=== PATIENT | female | born 1980 | race Caucasian/White ===

== ENCOUNTER 2016-12-05 15:10 | Emergency (ER) | payer SELFPAY ==
[~2016-12-05] VITALS: Ht 177.8 cm; Wt 81.2 kg
[~2016-12-05 15:10] MED LIST: CELEXA40 M1 PO; CIPRO 500MG TA500 MG PO; PYRIDIUM100 M2 PO; TRAZODONE 50MG50 MG PO
[2016-12-05 15:50] LABS: HEMOGLOBIN 12.8 g/dL (12.2-16.2); LYMPH # 2.5 K/mm3 (0.7-4.5); LYMPH % 20.3 % (10-50.0)
--- OUTSIDE RECORDS SUMMARY | 2016-12-05 15:55 | External Medical Summary Rpt | CCD ---
Author Author MARGARITA Address Unknown Phone [email or web address] Purpose Continuity of Care Document - through 2016
--- OUTSIDE RECORDS SUMMARY | 2016-12-05 15:55 | External Medical Summary Rpt | CCD ---
Demographics Preferred Language Norwegian Marital Status Unknown Jain Affiliation Unknown Race Unknown Ethnic Group Unknown Author Author , MARGARITA TAPIA Address Unknown Phone Immunization No patient found.
--- OUTSIDE RECORDS SUMMARY | 2016-12-05 15:55 | External Medical Summary Rpt | CCD ---
Demographics Preferred Language Cape Verdean Marital Status Unknown Uatsdin Affiliation Unknown Race Unknown Ethnic Group Unknown Author Author , MARGARITA TAPIA Address Unknown Phone Immunization No patient found.
--- OUTSIDE RECORDS SUMMARY | 2016-12-05 15:55 | External Medical Summary Rpt ---
Author Author WILLIE Parson, [employer] Organization [employer] Address Unknown Phone Unavailable
--- OUTSIDE RECORDS SUMMARY | 2016-12-05 15:55 | External Medical Summary Rpt | CCD ---
Author Author MARGARITA Address Unknown Phone Purpose Continuity of Care Document - through 2016
--- OUTSIDE RECORDS SUMMARY | 2016-12-05 15:55 | External Medical Summary Rpt | CCD ---
Author Author MARGARITA Address Unknown Phone [email or web address] Purpose Continuity of Care Document - through 2016
--- OUTSIDE RECORDS SUMMARY | 2016-12-05 15:55 | External Medical Summary Rpt | CCD ---
Author Author MARGARITA Address Unknown Phone [email or web address] Purpose Continuity of Care Document - through 2016
--- NOTE | 2016-12-05 16:37 | Emergency Room Report ---
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 N Clinical Suspician of Infection? N Mental Status: 1 - Regular (Normal Baseline) Sepsis Risk:Low Sepsis Risk Have you (or family members/close friends) recently traveled outside the [facility]? N If Yes, where/when: Have you had exposure to infectious disease within the past month? N TB? Other? Specify: Comment The patient states that she has severe pain in her LEFT lower quadrant and LEFT flank with nausea that started at 11 AM. No fever. No diarrhea or constipation. No urinary symptoms. She says that she has a history of kidney stones, but never this severe. She also has a history of ovarian cysts. She says she had similar symptoms 5 weeks ago while in [facility], and had a workup in the emergency room there that showed an elevated white blood cell count and blood in her urine, but a negative CT scan. That pain lasted 3 days. She followed up with an PIN MACHINE OPERATOR and had a Pap smear which was normal. ALLERGIES Coded Allergies: codeine (Intermediate, I-ITCHING 03/14/16) latex (03/14/16) History Medical History General CAD? No Angina: No [place]: No Hypertension? No Hyperlipidemia? No CHF? No DVT? No PE? No COPD? No Asthma? No Anemia? No GERD? No Gastric ulcers? No GI Bleed? No Hernia? No Thyroid Problems? No Hypothyroidism? No CVA? No Seizures? No Diabetes? No Renal Insuffiency? No End Stage Renal Disease? No UTI? No Stones? No BPH? No GB Disease: Yes Nephritic Syndrome? No Asplenia? No Hepatitis? No Sickle Cell Disease? No Arthritis? No Migraines? No Cataracts? No Glaucoma? No MRSA? No HIV? No TB? No Anxiety? Yes Depression? Yes Cancer? No More? 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 Musculoskeletal back pain Physical Exam Vital Signs Vital Signs Date Time Temp Pulse Resp B/P Pulse O2 O2 Flow FiO2 Ox Delivery Rate 12/05 1812 98.6 62 16 129/81 96 12/05 1741 62 16 129/81 96 12/05 1736 18 12/05 1517 98.6 81 18 138/89 98 General Appearance no apparent distress Eye Exam - bilateral eye normal exam, bilateral eye PERRL, bilateral eye EOMI Ear, Nose, Throat hearing grossly normal, normal ENT inspection Neck normal inspection, non-tender, supple, full range of motion Respiratory Status Yes: trachea midline, chest symmetrical, non tender chest. No: respiratory distress. Lung Sounds bilateral: normal breath sounds, lungs clear. Cardiovascular normal exam, regular rate/rhythm, no peripheral edema, no gallop, no JVD, no murmur, no rub, normal peripheral pulses Peripheral Pulses Pulses normal Yes Gastrointestinal normal bowel sounds, normal exam, non tender, soft, no organomegaly Back normal inspection, no CVA tenderness, no vertebral tenderness Extremities non-tender, normal range of motion, normal inspection Neurologic alert, profile grinder II-XII nml as tested, normal exam, oriented x 3 Mental status normal mood/affect Skin intact, normal color, warm/dry Medical Decision Making LABS/Meds/Orders Pt receiving controlled substance in ED? No Results/Orders Laboratory Tests 12/05/16 1645: Urine Color YELLOW, Urine Appearance SL CLOUDY, Urine pH 6.0, Ur Specific [place] >= 1.030, Urine Protein NEGATIVE, Urine Ketones TRACE H, Urine Blood TRACE-INTACT, Urine Nitrate NEGATIVE, Urine Bilirubin NEGATIVE, Urine Urobilinogen 0.2, Ur Leukocyte Esterase NEGATIVE, Ur Squamous Epith Cells 10-20, Urine Bacteria 4+, Urine Mucus 2+, Urine Glucose NEGATIVE 12/05/16 1520: Sodium 139, Potassium 3.7, Chloride 104, Carbon Dioxide 26, BUN 12, Creatinine 0.6, Estimated Creat Clear 163, Estimated GFR (MDRD) 112, Glucose 99, Calcium 8.9, Total Bilirubin 0.2, AST 14 L, ALT 13, Alkaline Phosphatase 75, Total Protein 7.1, Albumin 4.0, Globulin 3.1, Albumin/Globulin Ratio 1.3, Amylase 46, Lipase 72 L, WBC 12.3 H, RBC 4.04 L, Hgb 12.8, Hct 37.9, MCV 94.0, RDW 12.6, Plt Count 269, MPV 7.6, Gran % 75.4, Gran # 9.3 H, Lymphocytes % 20.3, Monocytes % 3.5, Eosinophils % 0.4, Basophils % 0.4, Lymphocytes # 2.5, Monocytes # 0.4, Eosinophils # 0.1, Basophils # 0.0, PUBS MCHC 33.7, MCH 31.6 H Current Medication Orders Sig/Constantino Start time Last Medication Dose Route Stop Time Status Admin Ketorolac 0 .STK-MED ONE 12/06 1735 DC Tromethamine .ROUTE Ondansetron HCl 0 .STK-MED ONE 12/05 173 DC .ROUTE Ketorolac 30 MG ONCE ONE 12/05 171 DC 12/05 Tromethamine IV 12/05 171 1736 Ondansetron HCl 4 MG ONCE ONE 12/05 1715 DC 12/05 IV 12/05 171 1735 Sodium Chloride 10 ML PRN PRN 12/05 1545 DCD IV 12/06 1540 Orders Procedure Date/time Status DIET-NOTHING BY MOUTH 12/[address] ABD/PELVIS REQ 12/05 1703 Active CULTURE, URINE 12/05 1645 Active IV SALINE LOCK 12/05 1541 Active URINALYSIS/COMPLETE 12/05 1541 Complete URINE 12/05 1541 Complete LIPASE 12/05 1541 Complete COMPLETE METABOLIC PANEL 12/05 1541 Complete CBC WITH AUTO DIFF 12/05 1541 Complete AMYLASE 12/05 1541 Complete XRAY/CT/US XRAY/CT/US CT abdomen, pelvis Comment CT scan interpreted by radiologist: No acute finding abdomen or pelvis Departure Departure Disposition DC Home or Self Care(routine) Clinical Impression Primary Impression: Left flank pain Secondary Impressions: Abdominal pain, left lower quadrant Condition STABLE Additional Instructions Off work until Wednesday12/07/16. You are being provided with a list of physicians available for follow-up of your condition. Please call a physician on this list to arrange a follow-up appointment as soon as possible. Additional instructions for ABDOMINAL PAIN: See your physician as soon as possible for further evaluation. Return immediately if worsening abdominal pain, vomiting, shortness of breath, fever, vomiting of blood or abdominal distention. Additional instructions for BACK PAIN: See your physician as soon as possible for further evaluation. Return immediately if back pain becomes intolerable, or if fever, numbness or weakness of your legs, loss of control of your bowels or bladder. Prescriptions Current Visit Scripts Naproxen (Naprosyn 500MG Tab) 500 MG PO BID #14 TAB Ondansetron (Zofran 4MG Odt) 4 MG PO Q8HP PRN NAUSEA AND VOMITING #10 ODT ED Critical Care Critical Care No at 2060
--- NOTE | 2016-12-05 16:37 | Emergency Room Report ---
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 N Clinical Suspician of Infection? N Mental Status: 1 - Regular (Normal Baseline) Sepsis Risk:Low Sepsis Risk Have you (or family members/close friends) recently traveled outside the [facility]? N If Yes, where/when: Have you had exposure to infectious disease within the past month? N TB? Other? Specify: Comment The patient states that she has severe pain in her LEFT lower quadrant and LEFT flank with nausea that started at 11 AM. No fever. No diarrhea or constipation. No urinary symptoms. She says that she has a history of kidney stones, but never this severe. She also has a history of ovarian cysts. She says she had similar symptoms 5 weeks ago while in [facility], and had a workup in the emergency room there that showed an elevated white blood cell count and blood in her urine, but a negative CT scan. That pain lasted 3 days. She followed up with an LEGAL RESEARCH ANALYST and had a Pap smear which was normal. ALLERGIES Coded Allergies: codeine (Intermediate, I-ITCHING 03/14/16) latex (03/14/16) History Medical History General CAD? No Angina: No [place]: No Hypertension? No Hyperlipidemia? No CHF? No DVT? No PE? No COPD? No Asthma? No Anemia? No GERD? No Gastric ulcers? No GI Bleed? No Hernia? No Thyroid Problems? No Hypothyroidism? No CVA? No Seizures? No Diabetes? No Renal Insuffiency? No End Stage Renal Disease? No UTI? No Stones? No BPH? No GB Disease: Yes Nephritic Syndrome? No Asplenia? No Hepatitis? No Sickle Cell Disease? No Arthritis? No Migraines? No Cataracts? No Glaucoma? No MRSA? No HIV? No TB? No Anxiety? Yes Depression? Yes Cancer? No More? 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 Musculoskeletal back pain Physical Exam Vital Signs Vital Signs Date Time Temp Pulse Resp B/P Pulse O2 O2 Flow FiO2 Ox Delivery Rate 12/05 1812 98.6 62 16 129/81 96 12/05 1741 62 16 129/81 96 12/05 1736 18 12/05 1517 98.6 81 18 138/89 98 General Appearance no apparent distress Eye Exam - bilateral eye normal exam, bilateral eye PERRL, bilateral eye EOMI Ear, Nose, Throat hearing grossly normal, normal ENT inspection Neck normal inspection, non-tender, supple, full range of motion Respiratory Status Yes: trachea midline, chest symmetrical, non tender chest. No: respiratory distress. Lung Sounds bilateral: normal breath sounds, lungs clear. Cardiovascular normal exam, regular rate/rhythm, no peripheral edema, no gallop, no JVD, no murmur, no rub, normal peripheral pulses Peripheral Pulses Pulses normal Yes Gastrointestinal normal bowel sounds, normal exam, non tender, soft, no organomegaly Back normal inspection, no CVA tenderness, no vertebral tenderness Extremities non-tender, normal range of motion, normal inspection Neurologic alert, rd scientist II-XII nml as tested, normal exam, oriented x 3 Mental status normal mood/affect Skin intact, normal color, warm/dry Medical Decision Making LABS/Meds/Orders Pt receiving controlled substance in ED? No Results/Orders Laboratory Tests 12/05/16 1645: Urine Color YELLOW, Urine Appearance SL CLOUDY, Urine pH 6.0, Ur Specific [place] >= 1.030, Urine Protein NEGATIVE, Urine Ketones TRACE H, Urine Blood TRACE-INTACT, Urine Nitrate NEGATIVE, Urine Bilirubin NEGATIVE, Urine Urobilinogen 0.2, Ur Leukocyte Esterase NEGATIVE, Ur Squamous Epith Cells 10-20, Urine Bacteria 4+, Urine Mucus 2+, Urine Glucose NEGATIVE 12/05/16 1520: Sodium 139, Potassium 3.7, Chloride 104, Carbon Dioxide 26, BUN 12, Creatinine 0.6, Estimated Creat Clear 163, Estimated GFR (MDRD) 112, Glucose 99, Calcium 8.9, Total Bilirubin 0.2, AST 14 L, ALT 13, Alkaline Phosphatase 75, Total Protein 7.1, Albumin 4.0, Globulin 3.1, Albumin/Globulin Ratio 1.3, Amylase 46, Lipase 72 L, WBC 12.3 H, RBC 4.04 L, Hgb 12.8, Hct 37.9, MCV 94.0, RDW 12.6, Plt Count 269, MPV 7.6, Gran % 75.4, Gran # 9.3 H, Lymphocytes % 20.3, Monocytes % 3.5, Eosinophils % 0.4, Basophils % 0.4, Lymphocytes # 2.5, Monocytes # 0.4, Eosinophils # 0.1, Basophils # 0.0, PUBS MCHC 33.7, MCH 31.6 H Current Medication Orders Sig/Constantino Start time Last Medication Dose Route Stop Time Status Admin Ketorolac 0 .STK-MED ONE 12/06 1735 DC Tromethamine .ROUTE Ondansetron HCl 0 .STK-MED ONE 12/05 173 DC .ROUTE Ketorolac 30 MG ONCE ONE 12/05 171 DC 12/05 Tromethamine IV 12/05 171 1736 Ondansetron HCl 4 MG ONCE ONE 12/05 1715 DC 12/05 IV 12/05 171 1735 Sodium Chloride 10 ML PRN PRN 12/05 1545 DCD IV 12/06 1540 Orders Procedure Date/time Status DIET-NOTHING BY MOUTH 12/[address] ABD/PELVIS REQ 12/05 1703 Active CULTURE, URINE 12/05 1645 Active IV SALINE LOCK 12/05 1541 Active URINALYSIS/COMPLETE 12/05 1541 Complete URINE 12/05 1541 Complete LIPASE 12/05 1541 Complete COMPLETE METABOLIC PANEL 12/05 1541 Complete CBC WITH AUTO DIFF 12/05 1541 Complete AMYLASE 12/05 1541 Complete XRAY/CT/US XRAY/CT/US CT abdomen, pelvis Comment CT scan interpreted by radiologist: No acute finding abdomen or pelvis Departure Departure Disposition DC Home or Self Care(routine) Clinical Impression Primary Impression: Left flank pain Secondary Impressions: Abdominal pain, left lower quadrant Condition STABLE Additional Instructions Off work until Wednesday12/07/16. You are being provided with a list of physicians available for follow-up of your condition. Please call a physician on this list to arrange a follow-up appointment as soon as possible. Additional instructions for ABDOMINAL PAIN: See your physician as soon as possible for further evaluation. Return immediately if worsening abdominal pain, vomiting, shortness of breath, fever, vomiting of blood or abdominal distention. Additional instructions for BACK PAIN: See your physician as soon as possible for further evaluation. Return immediately if back pain becomes intolerable, or if fever, numbness or weakness of your legs, loss of control of your bowels or bladder. Prescriptions Current Visit Scripts Naproxen (Naprosyn 500MG Tab) 500 MG PO BID #14 TAB Ondansetron (Zofran 4MG Odt) 4 MG PO Q8HP PRN NAUSEA AND VOMITING #10 ODT ED Critical Care Critical Care No at 1528
[2016-12-05 16:50] LABS: URINE BILIRUBIN - DIPSTICK NEGATIVE (NEG); URINE BLOOD TRACE-INTACT (NEG)
--- NOTE | 2016-12-05 18:00 | RADIOLOGY REPORT PS360 ---
CT ABD PELVIS W/O CONTRAST HISTORY: L FLANK PAIN, LLQ PAIN Patient Age: 36 years: Female Ordering Physician: Simon Valencia MD TECHNIQUE: Helical CT scanning through abdomen pelvis with no oral nor IV contrast. Sagittal coronal reconstructions on CT workstation COMPARISON :Previous CT abdomen and pelvis with contrast from 03/14/2016 as comparison also October 25, 2015 CT abdomen without contrast FINDINGS Lung bases. No active disease Abdomen pelvis. Lack of oral and IV contrast decreases sensitivity LIVER. No significant change. Again generous size liver with right lobe measuring up to 22 cm length. PANCREAS: unremarkable and stable on this noncontrast study. GALLBLADDE. Surgical Removed no biliary ductal dilatation. KIDNEYS. No urinary tract calculi nor obstruction... Ureters normal in course and caliber with no calculi .. R IGHT kidney. There is a 9 mm intermediate density cyst seen on the February CT.. On today's noncontrast study of blends with adjacent parenchyma but does not appear to have enlarged appears similar to October 2015 supported is more likely benign or indolent character LEFT kidney unremarkable. No hydronephrosis nor obstruction. The left ureter is slightly more generous today than it was on previous study but this may merely reflect hydration state. Urinary tract infections excluded. PELVIS: anteverted uterus with slightly more generous low-density endometrium on today's study most evident towards the superior aspect of uterus, with question of small small focal area of higher soft tissue density seen towards the inferior aspect endometrial cavity.. (Sagittal image 61.).. Does patient have normal regular menses? If heavy or irregular menses consider pelvic ultrasound to exclude submucosal fibroid. orendometrial polyp.. This appearance conceivably reflect scarring changes from previous endometrial ablation.. Note Negative test as well. No adnexal masses. No significant free fluid in the pelvis or abdomen. GI TRACT. No significant findings. The appendix is visualized and normal terminal ileum unremarkable. . No bowel dilatation or obstruction. There is upper normal wall thickness at the left colon and sigmoid colon most likely reflect lack of distention. There is minimal stool seen today throughout the left colon. Moderate stool right colon. . No pelvic nor mesenteric nor retroperitoneal adenopathy of significance. Scattered small nodes left para-aortic region appear stable. Inguinal nodes of moderate size appears stable. Soft tissues & abdominal wall unremarkable. Osseous structures. No significant findings. Mild degenerative disc changes L5/S1 IMPRESSION: 1. No acute findings at abdomen or pelvis 2. Regards to left flank pain no urinary tract calculi nor obstruction. Left kidney unremarkable. 3. Would only note that the Left ureter is very slightly more generous today but within still normal limits. This may reflect hydration state or could reflect UTI. 4. Slightly more generous endometrial stripe superior uterus.. Doubt current significance note comments in text. 5. The Small 9X 10 mm intermediate density cyst previously seen at the right kidney shows cannot be seen today on this noncontrast study as it is same density as the kidney on this noncontrast study.-However shows no interval enlargement.. & Most likely benign renal cyst
[2016-12-05] MEDS ORDERED: ZOFRAN ODT4 MG PO (18:09)
[2016-12-05] MEDS ORDERED: NAPROSYN500 M1 PO (18:09)
[2016-12-05 18:12] VITALS: BP 129/81
== END 2016-12-05 18:16 | disposition home or self-care (01) ==
LOC: ER 15:10
PROVIDERS: Emergency Medicine
DX: R10.32 Left lower quadrant pain (principal); F17.210 Nicotine dependence, cigarettes, uncomplicated
CPT/HCPCS: J2405

== ENCOUNTER 2017-01-09 14:48 | Emergency (ER) | payer SELFPAY ==
[~2017-01-09] VITALS: Ht 177.8 cm; Wt 82.1 kg
[~2017-01-09 14:48] MED LIST changes: +NAPROSYN500 M1 PO; +ZOFRAN ODT4 MG PO
--- OUTSIDE RECORDS SUMMARY | 2017-01-09 14:52 | External Medical Summary Rpt | CCD ---
Author Author [employer] Organization [employer] Address Unknown Phone Unavailable Purpose Continuity of Care Document - through 2016
--- OUTSIDE RECORDS SUMMARY | 2017-01-09 14:52 | External Medical Summary Rpt | CCD ---
Demographics Preferred Language Brazilian Marital Status Unknown Sikhism Affiliation Unknown Race Unknown Ethnic Group Unknown Author Author , MARGARITA TAPIA Address Unknown Phone Immunization No patient found.
--- OUTSIDE RECORDS SUMMARY | 2017-01-09 14:52 | External Medical Summary Rpt | CCD ---
Author Author , WILLIE Organization WILLIE Address Unknown Phone [email or web address] Purpose Continuity of Care Document - 12-05-2016 through 2016 Problems Code Diagnosis DOS Provider Status N39.0 URINARY TRACT INFECTION, SITE NOT SPECIFIED R10.32 LEFT LOWER QUADRANT PAIN R10.9 UNSPECIFIED ABDOMINAL PAIN S00.93XA CONTUSION OF UNSPECIFIED PART OF HEAD, INITIAL ENCOUNTER S06.0X9A CONCUSSION W LOSS OF CONSCIOUSNE SS OF UNSP DURATION, INIT S09.93XA UNSPECIFIED INJURY OF FACE, INITIAL ENCOUNTER S16.1XXA STRAIN OF MUSCLE, FASCIA AND TENDON AT NECK LEVEL, INIT S39.81XA OTHER SPECIFIED INJURIES OF ABDOMEN, INITIAL ENCOUNTER Results Labs Lab Lab Date Result Refere Interp Status Commen Order Detail nces retati t Range on Urinalysis with microscopy (12-05-2016 16:45) Urine 0.2 0.2 NEG complet urobili 017 L ed nogen 16:45 E.U./dL detecti on by test str [place] 10-20 0-5 complet s 017 10-20 L ed epithel 16:45 #/hpf ial cells detecti on in u Urine > = 1.005-1 complet specifi 017 1.030 .030 ed c 16:45 gravity measure ment Urine = NEG complet protein 017 NEGATIV ed 16:45 E mg/dL measure ment by automat ed t Urine = 6.0 5.0-8.5 complet pH 017 ed 16:45 Urine NEGATIV NEG complet nitrite 017 E ed 16:45 NEGATIV detecti E L on by test strip Mucus 2+ 2+ L OCC complet detecti 017 ed on in 16:45 urine sedimen t by lig Mucus NEGATIV NEG complet detecti 017 E ed on in 16:45 NEGATIV urine E L sedimen t by lig Urine TRACE NEG complet ketones 017 TRACE L ed 16:45 mg/dL detecti on by automat ed evangelista Glucose = NEG complet ur 017 NEGATIV ed test 16:45 E strip Urine YELLOW YELLOW complet color 017 YELLOW ed 16:45 L Urine TRACE-I NEG complet blood 017 NTACT ed detecti 16:45 TRACE-I on NTACT L Urine NEGATIV NEG complet total 017 E ed bilirub 16:45 NEGATIV in E L detecti on by test Bacteri 4+ 4+ L O complet a 017 ed detecti 16:45 on in urine sedimen t by Urine SL CLEAR complet appeara 017 CLOUDY ed nce 16:45 SL determi CLOUDY nation L Urine test (12-05-2016 16:45) Urine = NEG complet pregnan 017 NEGATIV ed cy test 16:45 E CBC w auto diff (12-05-2016 15:20) Blood = 12.3 4.8-10. complet leukocy 017 K/MM3 8 ed evangelista 15:20 count (number /volume ) Automat = 12.6 11.5-17 complet ed 017 % .5 ed erythro 15:20 cyte distrib ution width Red = 4.04 4.2-5.4 complet blood 017 M/mm3 ed cell 15:20 count Blood = 269 142-424 complet platele 017 K/mm3 ed t count 15:20 Automat = 7.6 7.4-10. complet ed 017 fl 4 ed blood 15:20 platele t mean volume kelly Upton % = 3.5 % 1.7-9.3 complet 017 ed 15:20 Absolut = 0.4 0.1-1.0 complet e 017 K/mm3 ed monocyt 15:20 e count Automat = 94.0 82.2-97 complet ed 017 fl .8 ed erythro 15:20 cyte mean corpusc ular v Automat = 33.7 31.8-35 complet ed 017 g/dl .4 ed erythro 15:20 cyte mean corpusc ular h Mean = 31.6 27-31.2 complet corpusc 017 pg ed ular 15:20 hemoglo bin (MCH) determ Lymphoc = 20.3 10-50.0 complet yte 017 % ed count, 15:20 blood, automat ed Absolut = 2.5 0.7-4.5 complet e 017 K/mm3 ed lymphoc 15:20 yte count Blood = 12.8 12.2-16 complet hemoglo 017 g/dL .2 ed bin 15:20 measure ment (mass/v olum Blood = 37.9 37.0-47 complet hematoc 017 % .0 ed rit 15:20 (volume fractio n) Granulo = 75.4 37.0-80 complet cyte 017 % .0 ed percent 15:20 age Blood = 9.3 1.8-7.8 complet granulo 017 K/mm3 ed cytes 15:20 automat ed count (numb Automat = 0.4 % 0.1-12. complet ed 017 0 ed blood 15:20 eosinop hils/10 0 leukocy t Automat = 0.1 0.0-0.4 complet ed 017 K/mm3 ed blood 15:20 eosinop hil count Baso % = 0.4 % 0.1-2.0 complet 017 ed 15:20 Automat = 0.0 0-0.2 complet ed 017 K/MM3 ed blood 15:20 basophi l count (count/ vo Lipase measurement (12-05-2016 15:20) Lipase = 72 73-393 complet measure 017 U/L ed ment 15:20 Comprehensive metabolic panel (12-05-2016 15:20) Protein = 7.1 6.4-8.2 complet total 017 gm/dL ed ser/vashti 15:20 s ALT = 13 12-78 complet (SGPT) 017 U/L ed ser/vashti 15:20 s Serum = 14 15-37 complet or 017 U/L ed plasma 15:20 asparta te aminotr ansfera Serum = 139 136-145 complet sodium 017 mmoL/L ed measure 15:20 ment Serum = 3.7 3.5-5.1 complet potassi 017 mmoL/L ed um 15:20 measure ment Serum = 99 74-106 complet or 017 mg/dL ed plasma 15:20 glucose measure ment (mas Serum = 3.1 1.3-3.2 complet globuli 017 gm/dL ed n 15:20 measure ment (mass/v olume) Estimat = 112 59- complet ed 017 ML/MIN ed glomeru 15:20 lar filtrat ion rate (GF Comment: REFERENCE RANGE: >60 ML/MIN/1.73 SQUARE METERS Comment: If this patient is -Malaysian, then multiply the Comment: result by 1.210. Estimat = 163 50-200 complet ion of 017 ML/MIN ed creatin 15:20 ine renal clearan ce Serum = 0.6 0.55-1. complet or 017 mg/dL 02 ed plasma 15:20 creatin ine measure ment ( Carbon = 26 21.0-32 complet dioxide 017 mmoL/L .0 ed 15:20 measure ment Serum = 104 98-107 complet or 017 mmoL/L ed plasma 15:20 chlorid e measure ment (mo Serum = 8.9 8.5-10. complet or 017 mg/dL 1 ed plasma 15:20 calcium measure ment (mas Serum = 12 7-18 complet or 017 mg/dL ed plasma 15:20 urea nitroge n measure men Serum = 0.2 0.2-1.0 complet or 017 mg/dL ed plasma 15:20 total bilirub in measure m Serum = 75 46-116 complet or 017 U/L ed plasma 15:20 alkalin e phospha tase kelly Serum = 4.0 3.4-5.0 complet or 017 gm/dL ed plasma 15:20 albumin measure ment (mas Serum = 1.3 1.1-1.8 complet or 017 ed plasma 15:20 albumin /globul in mass ra Amylase ser/plas (12-05-2016 15:20) Amylase = 46 25-115 complet 017 U/L ed ser/vashti 15:20 s
--- OUTSIDE RECORDS SUMMARY | 2017-01-09 14:52 | External Medical Summary Rpt ---
Author Author WILLIE Parson, QILOUISE [employer] Organization WILLIE [employer] Address Unknown Phone Unavailable Results Choriogonadotropin.beta subunit [Units] in 24 hour Urine Observa Value Referen Units Interpr Notes Date tion ce etation Range Choriogon NEG No No No Dec 05 adotropin informati informati informati 2017 4:45 .beta on in on in on in PM subunit source source source [Units] data data data in 24 hour Urine Amylase [Enzymatic activity/volume] in Serum or Plasma Observa Value Referen Units Interpr Notes Date tion ce etation Range Amylase 25 - 115 U/L Normal No Dec 05 [Enzymati informati 2017 3:20 c on in PM activity/ source volume] data in Serum or Plasma Comprehensive metabolic 2000 panel in Serum or Plasma Observa Value Referen Units Interpr Notes Date tion ce etation Range Albumin/G 1.1 - 1.8 No Normal No Dec 05 lobulin informati informati 2017 3:20 [Mass on in on in PM ratio] in source source Serum or data data Plasma Albumin 3.4 - 5.0 gm/dL Normal No Dec 05 [Mass/vol informati 2017 3:20 ume] in on in PM Serum or source Plasma data Alkaline 46 - 116 U/L Normal No Dec 05 phosphata informati 2017 3:20 se on in PM [Enzymati source c data activity/ volume] in Serum or Plasma Bilirubin 0.2 - 1.0 mg/dL Normal No Dec 05 .total informati 2017 3:20 [Mass/vol on in PM ume] in source Serum or data Plasma Urea 7 - 18 mg/dL Normal No Dec 05 nitrogen informati 2017 3:20 [Mass/vol on in PM ume] in source Serum or data Plasma Calcium 8.5 - mg/dL Normal No Dec 05 [Mass/vol 10.1 informati 2017 3:20 ume] in on in PM Serum or source Plasma data Chloride 98 - 107 mmoL/L Normal No Dec 05 [Moles/vo informati 2017 3:20 lume] in on in PM Serum or source Plasma data Carbon 21.0 - mmoL/L Normal No Dec 05 dioxide, 32.0 informati 2016 3:20 total on in PM [Moles/vo source lume] in data Serum or Plasma Creatinin 0.55 - mg/dL Normal No Dec 05 e 1.02 informati 2016 3:20 [Mass/vol on in PM ume] in source Serum or data Plasma Creatinin 50 - 200 ML/MIN Normal No Dec 05 e renal informati 2016 3:20 clearance on in PM source predicted data by Cockcroft -Gault formula Estimated 59- ML/MIN No REFERENCE Dec 05 informati RANGE: 2017 3:20 glomerula on in >60 PM r source ML/MIN/1. filtratio data 73 SQUARE n rate METERSIf (GF this patient is -A merican, then multiply theresult by 1.210. Globulin 1.3 - 3.2 gm/dL Normal No Dec 05 [Mass/vol informati 2016 3:20 ume] in on in PM Serum source data Glucose 74 - 106 mg/dL Normal No Dec 05 [Mass/vol informati 2016 3:20 ume] in on in PM Serum or source Plasma data Potassium 3.5 - 5.1 mmoL/L Normal No Dec 05 inform2016 3:20 [Moles/vo on in PM lume] in source Serum or data Plasma Sodium 136 - 145 mmoL/L Normal No Dec 05 [Moles/vo informati 2016 3:20 lume] in on in PM Serum or source Plasma data Aspartate 15 - 37 U/L Low No Dec 05 inform2016 3:20 aminotran on in PM sferase source [Enzymati data c activity/ volume] in Serum or Plasma Alanine 12 - 78 U/L Normal No Dec 05 aminotran informati 2016 3:20 sferase on in PM [Enzymati source c data activity/ volume] in Serum or Plasma Protein 6.4 - 8.2 gm/dL Normal No Dec 05 [Mass/vol informati 2016 3:20 ume] in on in PM Serum or source Plasma data Lipase [Enzymatic activity/volume] in Serum or Plasma Observa Value Referen Units Interpr Notes Date tion ce etation Range Lipase 73 - 393 U/L Low No Dec 05 [Enzymati informati 2016 3:20 c on in PM activity/ source volume] data in Serum or Plasma CBC W Auto Differential panel in Blood Observa Value Referen Units Interpr Notes Date tion ce etation Range Basophils 0 - 0.2 K/MM3 Normal No Dec 05 inform2016 3:20 [#/volume on in PM ] in source Blood by data Automated count Basophils 0.1 - 2.0 % Normal No Dec 05 /100 informati 2016 3:20 leukocyte on in PM s in source Blood by data Automated count Eosinophi 0.0 - 0.4 K/mm3 Normal No Dec 05 ls informati 2016 3:20 [#/volume on in PM ] in source Blood by data Automated count Eosinophi 0.1 - % Normal No Dec 05 ls/100 12.0 informati 2016 3:20 leukocyte on in PM s in source Blood by data Automated count Granulocy 1.8 - 7.8 K/mm3 High No Dec 05 evangelista informati 2016 3:20 [#/volume on in PM ] in source Blood by data Automated count Granulocy 37.0 - % Normal No Dec 05 evangelista/100 80.0 informati 2016 3:20 leukocyte on in PM s in source Blood by data Automated count Hematocri 37.0 - % Normal No Dec 05 t [Volume 47.0 informati 2016 3:20 on in PM Fraction] source of Blood data Hemoglobi 12.2 - g/dL Normal No Dec 05 n 16.2 informati 2016 3:20 [Mass/vol on in PM ume] in source Blood data Lymphocyt 0.7 - 4.5 K/mm3 Normal No Dec 05 es informati 2016 3:20 [#/volume on in PM ] in source Unspecifi data ed specimen by Automated count Lymphocyt 10 - 50.0 % Normal No Dec 05 es informati 2016 3:20 [#/volume on in PM ] in source Unspecifi data ed specimen by Automated count Erythrocy 27 - 31.2 pg High No Dec 05 te mean informati 2016 3:20 corpuscul on in PM ar source hemoglobi data n [Entitic mass] Erythrocy 31.8 - g/dl Normal No Dec 05 te mean 35.4 informati 2016 3:20 corpuscul on in PM ar source hemoglobi data n concentra tion [Mass/vol ume] by Automated count Erythrocy 82.2 - fl Normal No Dec 05 te mean 97.8 informati 2016 3:20 corpuscul on in PM ar volume source [Entitic data volume] by Automated count Monocytes 0.1 - 1.0 K/mm3 Normal No Dec 05 informati 2016 3:20 [#/volume on in PM ] in source Blood by data Automated count Monocytes 1.7 - 9.3 % Normal No Nov 21 /100 informati 2016 3:20 leukocyte on in PM s in source Blood by data Automated count Platelet 7.4 - fl Normal No Dec 05 mean 10.4 informati 2016 3:20 volume on in PM [Entitic source volume] data in Blood by Automated count Platelets 142 - 424 K/mm3 Normal No Dec 05 informati 2016 3:20 [#/volume on in PM ] in source Blood data Erythrocy 4.2 - 5.4 M/mm3 Low No Dec 05 evangelista informati 2016 3:20 [#/volume on in PM ] in source Amniotic data fluid Erythrocy 11.5 - % Normal No Dec 05 te 17.5 informati 2016 3:20 distribut on in PM ion width source [Entitic data volume] by Automated count Leukocyte 4.8 - K/MM3 High No Dec 05 s 10.8 informati 2016 3:20 [#/volume on in PM ] in source Blood data
--- OUTSIDE RECORDS SUMMARY | 2017-01-09 14:52 | External Medical Summary Rpt | CCD ---
Demographics Preferred Language South African Marital Status Unknown Synagogue Affiliation Unknown Race Unknown Ethnic Group Unknown Author Author , MARGARITA TAPIA Address Unknown Phone Immunization No patient found.
--- OUTSIDE RECORDS SUMMARY | 2017-01-09 14:52 | External Medical Summary Rpt | CCD ---
Author Author , WILLIE Organization WILLIE Address Unknown Phone [email or web address] Purpose Continuity of Care Document - 12-05-2016 [...] blood 15:20 platele t mean volume kelly Coal % = 3.5 % 1.7-9.3 complet 017 [...] SQUARE METERS Comment: If this patient is -Ethiopian, then multiply the Comment: result by 1.210. [...]
--- NOTE | 2017-01-09 15:12 | Urgent Treatment Center Report ---
See Addendum History of Present Issue Date/Time Seen by Provider 01/09/17 1512 Visit Reason Pt arrived:Walked Presenting Problem:PT C/O COUGH, CONGESTION AND HEADACHE Location if Accident: Onset of symptoms date/time:/ or onset unknown for:MEDICAL HX UNKNOWN Have you (or family members/close friends) recently traveled outside the [place]? N If Yes, where/when: Have you had exposure to infectious disease within the past month? TB? Other? Specify: c/o cough and chest congestion x 10 days. Mostly dry cough. Feeling feverish intermittently but hasn't checked temp. SOA and wheezing at times. Feeling worse last several days rather than any better. No improvement despite tylenol cold and flu, kadenitustami, kena powell, "you name it, I tried it". + tobacco use 1.5ppd. Denies hx of COPD, Asthma. Last had bronchitis 2 years ago. No known sick contacts. Source patient Exam Limitations no limitations ALLERGIES Coded Allergies: codeine (Intermediate, I-ITCHING 03/14/16) latex (03/14/16) Home Medications Reported Medications No Known Home Medications History Medical History General CAD? No Angina: No CT: No Hypertension? No Hyperlipidemia? No CHF? No DVT? No PE? No COPD? No Asthma? No Anemia? No GERD? No Gastric ulcers? No GI Bleed? No Hernia? No Thyroid Problems? No Hypothyroidism? No CVA? No Seizures? No Diabetes? No Renal Insuffiency? No UTI? No Stones? No BPH? No GB Disease: Yes Nephritic Syndrome? No Asplenia? No Hepatitis? No Sickle Cell Disease? No Arthritis? No Migraines? No Cataracts? No Glaucoma? No MRSA? No HIV? No TB? No Anxiety? Yes Depression? Yes Cancer? No More? No Immunization HX DT/Tetanus 1-4 Years Ago Surgical Hx Previous Surgery?Y Gallbladder (Other) OVARIAN CYST Tubal Ligation ABLATION X 1 Social History Smoking Hx Smoker: Current Every Day Smoker Tobacco: Yes Type Cigarettes Packs/day < 1 Pack Alcohol Alcohol: Yes Review of Systems All Other Systems Reviewed and Negative Constitutional see HPI, chills Eyes denies drainage ENT denies: ear pain, nose discharge, nose congestion, throat pain. Respiratory see HPI Cardiovascular denies chest pain, denies palpitations Gastrointestinal denies no symptoms reported Musculoskeletal denies joint pain Skin denies rash Psychiatric/Neurological headache (intermittently) Physical Exam Vital Signs Vital Signs Date Time Temp Pulse Resp B/P Pulse O2 O2 Flow FiO2 Ox Delivery Rate 01/09 1450 98.4 80 16 137/74 98 General Appearance normal appearance, no apparent distress Ear, Nose, Throat normal ENT inspection Neck non-tender, supple Respiratory Status Yes: trachea midline, chest symmetrical, non tender chest, non productive cough (freq, worse w/ deep breaths). No: respiratory distress, use of accessory muscles, pain on inspiration, pain on expiration. Lung Sounds posterior: decreased breath sounds, wheezing (faint end exp throughout). bilateral: decreased breath sounds, wheezing (faint end exp throughout). Cardiovascular regular rate/rhythm, no peripheral edema, no murmur Neurologic alert, oriented x 3 Mental status normal mood/affect Skin normal color, warm/dry Lymphatic no adenopathy Medical Decision Making LABS/Meds/Orders Pt receiving controlled substance in ED? No Results/Orders Current Medication Orders Sig/Constantino Start time Last Medication Dose Route Stop Time Status Admin Methylprednisolone 0 .STK-MED ONE 01/09 1543 DC Sodium Succinate .ROUTE Albuterol/Ipratropium 3 ML ONCE ONE 01/09 1530 DC 01/09 INH 01/09 1531 1530 Methylprednisolone 125 MG ONCE ONE 01/09 1530 DC 01/09 Sodium Succinate IM 01/09 1531 1634 Albuterol/Ipratropium 0 .STK-MED ONE 01/09 1524 DC INH Orders Procedure Date/time Status RT Aerosol Treatment, Provide 01/09 1545 Active RT REQUEST DUONEB 01/09 1516 Active XRAY/CT/US XRAY/CT/US XRAY chest XR interpretation by reviewed by me (w/ JORGE Guerra MD), discussed w/ radiologist (read report) Xray Results minimal right perihilar and right middle lobe bronchopneumonia Departure Departure Time of Disposition 1634 Disposition DC Home or Self Care(routine) Clinical Impression Primary Impression: Bronchopneumonia Secondary Impressions: Tobacco abuse Condition STABLE Referrals NO REFERRAL Follow up with primary care, [facility], or ER immediately for new or worsening symptoms. Follow up with primary care on Wednesday so you can be followed until resolves. Patient Instructions DI for Pneumonia -- Adult, How to Quit Tobacco Products Additional Instructions * STOP SMOKING!!!! * start antibiotic today. Be sure to complete entire prescription even if feeling better. * Monitor Temp. Tylenol every 4 hours as needed no more then 5 times a day or 4000mg in 24 hours and/or ibuprofen every 6 hours as needed no more then 3200mg in 24 hours (as long as your primary care doctor has told you that it is ok to take both) for fever/aches/pain. ER if fever no less than 101 despite tylenol and ibuprofen * humidifier/vaporizer/hot steamy shower * Inhaler every 4-6 hours as needed like we discussed. If unsure how to use it, ask pharmacist to demonstrate how. Should help open airways and improve cough, wheezing, shortness of breath. * Mucinex during the day for your cough and cough suppressant only at night. Be sure to drink lots of water. Insurance may not cover a prescription of mucinex. Might be cheaper to get 400mg tablets and take 2 tablets morning, midday and evening all with lots of water. * Promethazine DM cough syrup will cause drowsiness. Use it only at night. No driving, operating machinery or caring for small children after taking it. * Start steroid tomorrow. Helps with inflammation therefore, cough and wheezing. Follow directions on package. Rvwd side effects. Pt reports they have taken them before. Discharge Counseling Counseled pt/family regarding diagnosis, test results, medications/RX, home care, follow up needs Prescriptions Current Visit Scripts Azithromycin (Zithromycin (Z-BRAD) 250MG Tab) 250 MG PO DAILY #6 TAB TAKE TWO (2) TABLETS ON DAY 1, THEN ONE (1) TABLET DAY #2 THRU #5 ALBUTEROL (Proventil Hfa Inhaler) 1-2 PUFF IH Q4-6H PRN PRN SOA, wheezing #1 CAN PROMETHAZINE/DEXTROMETHORPHAN (Promethazine-Dm Syrup) 10 ML PO QHSP PRN cough #120 ML will cause drowsiness Prednisone (Prednisone 20MG) 20 MG PO BID #10 TAB at 1633
--- NOTE | 2017-01-09 16:26 | RADIOLOGY REPORT PS360 ---
CHEST(2 VIEWS-NOT PORTABLE) COMPARISON: PA chest 03/14/2016 HISTORY: Cough and wheezing TECHNIQUE: PA and lateral chest FINDINGS: The lung bahena are well expanded. There is a patchy ill-defined pneumonic infiltrate in the right perihilar region and right middle lobe. The remainder of the right lung field is clear and the left lung field is clear. Cardiac size is normal and the vascularity is otherwise normal. IMPRESSION: Minimal right perihilar and right middle lobe bronchopneumonia
[2017-01-09] MEDS ORDERED: ZITHROMAX Z PA250 MG PO (16:38)
[2017-01-09] MEDS ORDERED: PROVENTIL0.09 MG/A1 IH (16:38)
[2017-01-09] MEDS ORDERED: PROMETHAZINE D118 ML PO (16:38)
[2017-01-09] MEDS ORDERED: PREDNISONE 20MG20 MG PO (16:38)
[2017-01-09 16:41] VITALS: BP 137/74
== END 2017-01-09 16:41 | disposition home or self-care (01) ==
LOC: UTC 14:48
DX: J18.0 Bronchopneumonia, unspecified organism (principal); F17.210 Nicotine dependence, cigarettes, uncomplicated